=== PATIENT | male | born 1965 | race Caucasian/White ===

== ENCOUNTER → 2017-01-13 | Day surgery (SDC) | payer BC ==
[2017-01-13] VITALS (14 sets, daily range): BP systolic 110–170; BP diastolic 68–108; PULSE 62–86; TEMP 36.8–36.9; O2SAT 96–100; Ht 177.8 cm; Wt 65.5 kg
[~2017-01-13] VITALS: Ht 177.8 cm; Wt 65.5 kg
[~2017-01-13] MED LIST: AMLO-114 PO; ASPI325T45 PO; D5W AND 1/2NSS 1,000 ML IV SCH; FENTANYL CITRATE INJ 50 MCG/1 ML 2 ML VIAL IV ONE; LIDOCAINE 4% INH SOLN 4 ML BTL ONE; LIDOCAINE HCL 2% LOCAL 50ML VIAL INFIL ONE; METO100T44 PO; MIDAZOLAM HCL 5 MG/ML 1 ML VIAL IV ONE; NURSING VERBAL MED ORDER ONE; OMEG10007 PO; PRLSR20 PO
--- NOTE | 2017-01-13 08:42 | History & Physical Bridge Note ---
H&P Re-Evaluation Bridge Note: I have examined the patient, reviewed the History & Physical and in the interval since the performance of the History & Physical I have noted the following changes of clinical significance: No changes noted
--- NOTE | 2017-01-13 08:43 | Procedure Note ---
Pre-Mod Sedation Assessment General Date of Moderate Sedation: January 13, 2017. Vital Signs: Vital Signs Past 12 Hours Date Time Temp Pulse Resp B/P Pulse Ox O2 Delivery O2 Flow Rate FiO2 01/13/17 07:48 36.8 73 18 154/93 98 Room Air Review Cardiovascular: regular rate, rhythm, no edema, no gallop, no JVD, no murmur, normal peripheral pulses Abdomen: normal bowel sounds, non tender, soft, no organomegaly, no pulsatile mass, normal rectal exam, occult blood negative Lungs: chest non-tender, lungs clear, normal breath sounds, no respiratory distress, no accessory muscle use Airway Class: II Pre-Sedation Airway Assessment Oral Cavity: WNL Able to Visualize Vocal Cords: Yes Short Thick Neck: No Hx of Sleep Apnea: No Smoking Status: Former Smoker Mallampati Classification: Class I Procedure Planning Contraindications-for Mod Sed: None Yes Notes The planned sedation has been discussed with the patient and consent obtained. I have identified the patient, determined the appropriateness of sedation and have assessed the patient immediately prior to the procedure. All medicine(s) and interventions are by my order.
--- NOTE | 2017-01-13 09:53 | Bronchoscopy Procedure Note ---
Bronchoscopy Procedure Note Procedure: Bronchoscopy, conscious sedation, BAL RML, Tbbx x 7 Consent: Obtained through the patient placed into the chart Pre-procedural diagnosis: Sarcoidosis vs. infection Post-procedural diagnosis: Sarcoidosis vs. infection Start time: 917 End time: 940 Total time: 23 minutes Analgesia: 2% liquid lidocaine: Via nebulizer 4% gel lidocaine: Via right naris 2% liquid lidocaine: Via bronchoscopy Sedation: Versed IV: 4mg Fentanyl IV: 100g Procedure: The [employer] video bronchoscope was used for this procedure and passed down through the right naris Right naris/posterior naris/posterior oropharynx: Anatomically within normal limits Glottis: Anatomically within normal limits Vocal cords: Proper abduction and abduction, anatomically within normal limits Subglottis/trachea/Erin: Anatomically within normal limits Right bronchial tree: Right mainstem bronchus: Anatomically within normal limits Right upper lobe: Anatomically within normal limits Bronchus intermedius: Anatomically within normal limits Right middle lobe: Anatomically within normal limits Right lower lobe: Anatomically within normal limits Findings: No significant findings noted Left bronchial tree: Left mainstem bronchus: Anatomically within normal limits Left upper lobe: Anatomically within normal limits Lingula: Anatomically within normal limits Left lower lobe: Anatomically within normal limits Findings: No significant findings noted Bronchial alveolar lavage: x2 RML Tbbx: x7 with 6 adequate samples EBL: Complications: None Follow-up: In the [facility]
--- NOTE | 2017-01-13 09:58 | Discharge Instructions ---
Discharge Instructions Date of Service January 13, 2017. Admission Reason for Admission: Lung Mass Discharge Discharge Diagnosis / Problem: Abnormal CT of the chest Discharge Goals Goal(s): Diagnostic testing Activity Recommendations Activity Limitations: resume your previous activity . Instructions / Follow-Up Instructions / Follow-Up Follow-up at the [facility] Hospital Diet Patient's current hospital diet: Discharge Diet Recommended Diet: Regular Diet Procedures Procedures Performed: Bronchoscopy, Transbronchial biopsies, Bronchial lavage conscious sedation Pending Studies Studies pending at discharge: no Medical Emergencies . Who to Call and When: Medical Emergencies: If at any time you feel your situation is an emergency, please call 911 immediately. . Non-Emergent Contact Non-Emergency issues call your: Clinical Review Specialist Call Non-Emergent contact if: temperature is above 101.5 . . "Provider Documentation" section prepared by Souleymane Kendall. . VTE Core Measure Inpt VTE Proph given/why not?: Treatment not indicated
--- NOTE | 2017-01-13 10:26 | DIAGNOSTIC IMAGING REPORT ---
CHEST ONE VIEW PORTABLE CLINICAL HISTORY: Post bronchoscopy x-ray. COMPARISON STUDY: Outside chest x-ray dated 12/20/2016 FINDINGS: The cardiac and mediastinal contours remain stable. There are mid to upper lung zone fibronodular opacities with a peripheral predominance. This finding remains similar to the prior study. There is no pneumothorax. There is no significant pleural fluid. There is no failure.[ IMPRESSION: No evidence of pneumothorax status post thoracentesis. Persistent fibronodular peripheral mid to upper lung zone opacities Electronically signed by: King Cancino M.D. 01/13/2017 10:25 AM Dictated Date/Time: 01/13/2017 10:24 AM
--- NOTE | 2017-01-13 11:00 | Procedure Note ---
Post-Moderate Sedation Plan General Date of Moderate Sedation January 13, 2017. Vital Signs: Vital Signs Past 12 Hours Date Time Temp Pulse Resp B/P Pulse Ox O2 Delivery O2 Flow Rate FiO2 01/13/17 10:51 68 18 133/69 98 Nasal Cannula 2 01/13/17 10:20 36.9 76 18 120/88 98 Nasal Cannula 3 01/13/17 09:52 36.9 86 18 118/85 98 Nasal Cannula 4 01/13/17 09:45 83 20 112/68 97 Nasal Cannula 4.0 01/13/17 09:40 77 16 120/90 97 Mask 10.0 01/13/17 09:35 77 14 121/76 98 Mask 10.0 01/13/17 09:30 84 16 127/89 100 Mask 10.0 01/13/17 09:25 83 16 142/90 100 Mask 10.0 01/13/17 09:20 76 20 170/108 100 Mask 10.0 01/13/17 09:15 83 20 168/101 100 Mask 10.0 01/13/17 09:10 73 18 161/103 100 Mask 01/13/17 09:10 36.8 73 18 154/93 98 Room Air 01/13/17 07:48 36.8 73 18 154/93 98 Room Air Review - Discharge Plan Post Moderate Sedation Plan: On clinical assessment, the patient appears to have tolerated the conscious sedation without complications. Patient is recovering as anticipated. Patient will continue to be monitored by nursing and may be discharged when conscious sedation discharge criteria are met.
[2017-02-09 12:53] LABS: HERPES SIMPLEX CULT SOURCE RESPIRATORY-RML BAL; HERPES SIMPLEX VIRUS CULT NOT ISOLATED (NOT ISOLATED)
== END | disposition home or self-care (01) ==
LOC: C.ACU 07:29 → MERGE 08:00
PROVIDERS: ATTEND Internal Medicine Critical Care Medicine
DX: D86.0 Sarcoidosis of lung (principal); I10 Essential (primary) hypertension; K21.9 Gastro-esophageal reflux disease without esophagitis; L40.9 Psoriasis, unspecified; Z87.891 Personal history of nicotine dependence; Z79.82 Long term (current) use of aspirin; Z79.899 Other long term (current) drug therapy

== ENCOUNTER → 2017-09-13 | Outpatient (CLI) | payer BC ==
[~2017-09-13] MED LIST changes: -D5W AND 1/2NSS 1,000 ML IV SCH; -FENTANYL CITRATE INJ 50 MCG/1 ML 2 ML VIAL IV ONE; -LIDOCAINE 4% INH SOLN 4 ML BTL ONE; -LIDOCAINE HCL 2% LOCAL 50ML VIAL INFIL ONE; -MIDAZOLAM HCL 5 MG/ML 1 ML VIAL IV ONE; -NURSING VERBAL MED ORDER ONE
--- NOTE | 2017-09-13 13:14 | DIAGNOSTIC IMAGING REPORT ---
CHEST 2 VIEWS ROUTINE HISTORY: 51 years-old Male SARCOIDOSIS COMPARISON: Chest radiograph 01/13/2017, chest CT 07/13/2017 TECHNIQUE: PA and lateral views of the chest FINDINGS: Cardiac silhouette is within normal limits. There is mild elevation of the bilateral rosanna secondary to upper and mid lung zone predominant reticular nodular opacities which appear unchanged from comparison chest CT 07/13/2017. There is no pneumothorax, pleural effusion or new focal airspace consolidation. Calcified hilar lymph nodes. Bones of the chest appear grossly intact. IMPRESSION: Unchanged bilateral mid and upper lung zone predominant reticulonodular opacities with elevation of the rosanna. These findings along with calcified hilar adenopathy are compatible with patient's clinical history of pulmonary sarcoidosis. The above report was generated using voice recognition software. It may contain grammatical, syntax or spelling errors. Electronically signed by: Remy Taylor M.D. 09/13/2017 1:12 PM Dictated Date/Time: 09/13/2017 1:08 PM
== END | disposition home or self-care (01) ==
LOC: C.RAD1850 13:01
PROVIDERS: ATTEND Internal Medicine Critical Care Medicine
DX: D86.9 Sarcoidosis, unspecified (principal)